=== PATIENT | male | born 1935 | race Caucasian/White ===

== ENCOUNTER → 2016-06-06 | Day surgery (SDC) | payer MEDICARE, BC ==
[2013-09-05 14:00] VITALS: BP 122/59
[~2016-06-06] MED LIST: CARDI-OMEGA1000 MG PO; FLOMAX0.4 MG PO; GOOD SENSE ASPI81 M1 PO; OXYBUTYNIN5 MG PO; SIMVASTATIN40 MG PO; TENORMIN100 MG PO
--- NOTE | 2016-06-06 17:15 | NUR ---
ALL MEDICATIONS ADMINISTERED BY ANESTHESIA PROVIDER, SEE ANESTHESIA RECORD.
== END ==
LOC: MSO 13:25
DX: Z12.11 Encounter for screening for malignant neoplasm of colon (principal); Z80.0 Family history of malignant neoplasm of digestive organs; K64.0 First degree hemorrhoids
CPT/HCPCS: 00810; J7120

== ENCOUNTER → 2016-11-15 | Day surgery (SDC) | payer MEDICARE, BC ==
[2013-09-05 14:00] VITALS: BP 122/59
== END ==
LOC: MSO 08:46
DX: H25.12 Age-related nuclear cataract, left eye (principal); I10 Essential (primary) hypertension
CPT/HCPCS: 00142; A9270-GY; J0171; J2550; J3010; V2632; V2797

== ENCOUNTER → 2019-06-05 | Outpatient (CLI) | payer MEDICARE, BC ==
[2019-02-17 18:34] VITALS: BP 128/72
[~2019-06-05] MED LIST changes: +AUGMENTIN 875-1 EAC1 PO
== END ==
LOC: RAD 15:43
DX: I08.3 Combined rheumatic disorders of mitral, aortic and tricuspid valves (principal); E87.70 Fluid overload, unspecified; R60.0 Localized edema

== ENCOUNTER 2021-11-02 10:10 | Outpatient (RCR) | payer MEDICARE, BC | END 2021-12-01 | disposition still patient (30) | LOC: PT | DX: R26.89 Other abnormalities of gait and mobility (principal) ==

== ENCOUNTER 2021-12-02 10:06 | Outpatient (RCR) | payer MEDICARE, BC | END 2022-01-01 | disposition still patient (30) | LOC: PT | DX: R26.89 Other abnormalities of gait and mobility (principal) ==

== ENCOUNTER 2022-01-02 08:00 | Outpatient (RCR) | payer MEDICARE, BC | END 2022-02-01 | disposition home or self-care (01) | LOC: PT | DX: R26.89 Other abnormalities of gait and mobility (principal) ==

== ENCOUNTER 2023-03-26 08:21 | Emergency (ER) | payer MEDICARE, BC ==
[~2023-03-26] VITALS: Ht 182.9 cm; Wt 100.0 kg
[~2023-03-26 08:21] MED LIST changes: +COZAAR 50MG50 MG/TAB PO; +DITROPAN 5MG TAB5 MG PO; +FLONASE ALLERG9.9 ML; +LASIX40 M1 PO; +MASON NATURAL L20 MG PO; +NITROGLYCERIN0.4 M1 SL; +OCUVITE TABLET1 TAB; +ZYLOPRIM100 MG PO
[2023-03-26 08:33] VITALS: BP 127/82
[2023-03-26 09:09] LABS: BASO # 0.03 K/mm3 (0.02-0.10); EOS # 0.27 K/mm3 (0.04-0.40); EOS % 3.4 % (0.0-4.0); HEMATOCRIT 26.4 % (42.0-52.0); HEMOGLOBIN 8.4 g/dL (13.5-18.0); LYMPH# 0.94 K/mm3 (1.50-4.00); MEAN CELL VOLUME 104 fl (78-100); MEAN CORPUSCULAR HEMOGLOBIN 33 pg (27-31); MEAN CORPUSCULAR HGB CONC 32 g/dL (33-37); MEAN PLATELET VOLUME 9.3 fl (7.4-10.4); MONO # 0.86 K/mm3 (0.20-0.80); NEU # 5.76 K/mm3 (1.40-6.50); PLATELET COUNT 136 K/mm3 (130-400); RED BLOOD COUNT 2.55 M/mm3 (4.20-5.60); RED CELL DISTRIBUTION WIDTH 13.3 % (11.5-14.5); WHITE BLOOD COUNT 7.9 K/mm3 (4.8-10.8)
[2023-03-26 09:28] LABS: ALBUMIN 3.4 g/dL (3.4-4.8)
[2023-03-26 09:29] LABS: CALCIUM 9.2 mg/dL (8.3-10.5)
[2023-03-26 09:33] LABS: TOTAL BILIRUBIN 0.3 mg/dL (0.2-1.2)
[2023-03-26 10:24] LABS: ERYTHROCYTE SEDIMENTATION RATE 90 mm/hr (0-20)
[2023-03-26] MEDS ORDERED: DOXYCYCLINE HY100 M5 PO (10:59)
[2023-03-26] MEDS ORDERED: PREDNISONE20 MG PO (10:59)
== END 2023-03-26 11:06 | disposition home or self-care (01) ==
LOC: ED 08:21
PROVIDERS: Physician Assistant
DX: M10.031 Idiopathic gout, right wrist (principal); L03.113 Cellulitis of right upper limb; R79.82 Elevated C-reactive protein (CRP); R70.0 Elevated erythrocyte sedimentation rate; Z79.899 Other long term (current) drug therapy; Z88.1 Allergy status to other antibiotic agents

== ENCOUNTER 2023-11-25 11:22 | Inpatient (IN) | payer MEDICARE, BC ==
[~2023-11-25] VITALS: Ht 180.3 cm; Wt 99.7 kg
[~2023-11-25 11:22] MED LIST changes: +ATORVASTATIN CA20 MG PO; +BENZONATATE100 M2 PO; +CORDARONE200 MG/TAB PO; +DOXYCYCLINE HY100 M5 PO; +KAPSPARGO SPRIN25 MG PO; +PANTOPRAZOLE SO40 MG PO; +PREDNISONE20 MG PO
[2023-11-25 11:57] LABS: BASO # 0.02 K/mm3 (0.02-0.10); EOS # 0.07 K/mm3 (0.04-0.40); EOS % 0.8 % (0.0-4.0); HEMATOCRIT 33.1 % (42.0-52.0); HEMOGLOBIN 10.4 g/dL (13.5-18.0); LYMPH# 1.85 K/mm3 (1.50-4.00); MEAN CELL VOLUME 103 fl (78-100); MEAN CORPUSCULAR HEMOGLOBIN 32 pg (27-31); MEAN CORPUSCULAR HGB CONC 31 g/dL (33-37); MEAN PLATELET VOLUME 10.6 fl (7.4-10.4); MONO # 0.64 K/mm3 (0.20-0.80); NEU # 5.77 K/mm3 (1.40-6.50); PLATELET COUNT 95 K/mm3 (130-400); RED BLOOD COUNT 3.23 M/mm3 (4.20-5.60); RED CELL DISTRIBUTION WIDTH 17.8 % (11.5-14.5); WHITE BLOOD COUNT 8.4 K/mm3 (4.8-10.8)
[2023-11-25 12:00] LABS: ALBUMIN 3.1 g/dL (3.4-4.8); SODIUM 134 mmol/L (136-145)
[2023-11-25 12:01] LABS: CALCIUM 8.3 mg/dL (8.3-10.5)
[2023-11-25 12:02] LABS: GLUCOSE 79 mg/dL (75-110); TOTAL PROTEIN 6.1 g/dL (6.2-8.1)
[2023-11-25 12:04] LABS: CARBON DIOXIDE 25 mmol/L (23-31); TOTAL BILIRUBIN 0.5 mg/dL (0.2-1.2)
[2023-11-25 12:08] LABS: AST-SGOT 23 U/L (5-34)
[2023-11-25 12:09] LABS: ALT/SGPT 9 U/L (0-55)
[2023-11-25 12:14] LABS: PARTIAL THROMBOPLASTIN TIME 24.5 SECONDS (21.0-32.0); PROTHROMBIN TIME 11.3 SECONDS (9.0-12.0)
[2023-11-25] MEDS ORDERED: ZOCOR40 M1 PO (12:14)
[2023-11-25 12:16] LABS: TROPONIN-I < 0.030 ng/mL (0.00-0.033)
[2023-11-25 13:06] LABS: URINE APPEARANCE CLOUDY (CLEAR); URINE COLOR YELLOW (YELLOW)
[2023-11-25 13:07] LABS: PH-URINE 5.5 (5.0 - 8.0); URINE BLOOD 1+ (NEGATIVE); URINE GLUCOSE NEGATIVE (NEGATIVE); URINE KETONE TRACE (NEGATIVE); URINE LEUKOCYTE ESTERASE 3+ (NEGATIVE); URINE NITRATE NEGATIVE (NEGATIVE); URINE PROTEIN(semi-quant) 2+ (NEGATIVE)
[2023-11-25 13:08] LABS: URINE BILIRUBIN 2+ (NEGATIVE); URINE WBC >50 /hpf (0-3)
[2023-11-25 14:00] VITALS: BP 126/64
[2023-11-25] MEDS ORDERED: Acetaminophen 325 MG TAB PO PRN (14:15)
[2023-11-25] MEDS ORDERED: Ciprofloxacin 250 MG TAB PO SCH (14:15)
[2023-11-25] MEDS ORDERED: Polyethylene Glycol 3350 Powder 17 GM PACKET PO PRN (14:15)
[2023-11-25 18:13] VITALS: BP 127/65
[2023-11-25] MEDS ORDERED: Docusate Sodium 100 MG CAP PO SCH (21:00)
[2023-11-25 22:00] VITALS: BP 128/60
[2023-11-26 06:03] VITALS: BP 108/57
[2023-11-26 07:30] LABS: BASO # 0.01 K/mm3 (0.02-0.10); EOS # 0.15 K/mm3 (0.04-0.40); EOS % 1.8 % (0.0-4.0); HEMATOCRIT 29.8 % (42.0-52.0); HEMOGLOBIN 9.5 g/dL (13.5-18.0); LYMPH# 1.96 K/mm3 (1.50-4.00); MEAN CELL VOLUME 102 fl (78-100); MEAN CORPUSCULAR HEMOGLOBIN 32 pg (27-31); MEAN CORPUSCULAR HGB CONC 32 g/dL (33-37); MEAN PLATELET VOLUME 9.8 fl (7.4-10.4); MONO # 0.71 K/mm3 (0.20-0.80); NEU # 5.69 K/mm3 (1.40-6.50); PLATELET COUNT 92 K/mm3 (130-400); RED BLOOD COUNT 2.93 M/mm3 (4.20-5.60); RED CELL DISTRIBUTION WIDTH 17.4 % (11.5-14.5); WHITE BLOOD COUNT 8.5 K/mm3 (4.8-10.8)
[2023-11-26 07:33] LABS: ALBUMIN 2.9 g/dL (3.4-4.8)
[2023-11-26 07:35] LABS: CALCIUM 8.1 mg/dL (8.3-10.5)
[2023-11-26 07:36] LABS: TOTAL PROTEIN 5.8 g/dL (6.2-8.1)
[2023-11-26 07:38] LABS: TOTAL BILIRUBIN 0.4 mg/dL (0.2-1.2)
[2023-11-26] MEDS ORDERED: Allopurinol 100 MG TAB PO SCH (09:00)
[2023-11-26] MEDS ORDERED: Furosemide 40 MG TAB PO SCH (09:00)
[2023-11-26] MEDS ORDERED: Amiodarone 200 MG TAB PO SCH (09:00)
[2023-11-26 09:59] VITALS: BP 139/73
[2023-11-26 14:11] VITALS: BP 116/64
[2023-11-26 18:08] VITALS: BP 124/64
[2023-11-26 21:59] VITALS: BP 120/63
[2023-11-27] VITALS (7 sets, daily range): BP systolic 124–156; BP diastolic 63–71
[2023-11-27 10:54] LABS: BASO # 0.03 K/mm3 (0.02-0.10); EOS # 0.11 K/mm3 (0.04-0.40); EOS % 1.2 % (0.0-4.0); HEMATOCRIT 30.6 % (42.0-52.0); HEMOGLOBIN 9.8 g/dL (13.5-18.0); LYMPH# 1.94 K/mm3 (1.50-4.00); MEAN CELL VOLUME 99 fl (78-100); MEAN CORPUSCULAR HEMOGLOBIN 32 pg (27-31); MEAN CORPUSCULAR HGB CONC 32 g/dL (33-37); MEAN PLATELET VOLUME 9.4 fl (7.4-10.4); MONO # 0.71 K/mm3 (0.20-0.80); NEU # 6.11 K/mm3 (1.40-6.50); RED BLOOD COUNT 3.09 M/mm3 (4.20-5.60); RED CELL DISTRIBUTION WIDTH 16.7 % (11.5-14.5); WHITE BLOOD COUNT 8.9 K/mm3 (4.8-10.8)
[2023-11-27 11:06] LABS: ALBUMIN 2.9 g/dL (3.4-4.8)
[2023-11-27 11:07] LABS: CALCIUM 8.1 mg/dL (8.3-10.5)
[2023-11-27 11:08] LABS: TOTAL PROTEIN 5.9 g/dL (6.2-8.1)
[2023-11-27 11:10] LABS: TOTAL BILIRUBIN 0.3 mg/dL (0.2-1.2)
[2023-11-27 11:25] LABS: PLATELET COUNT 97 K/mm3 (130-400)
== END 2023-11-27 18:30 | disposition short-term general hospital (02) | DRG 643 ==
LOC: ED 11:22 → MED/SURG 13:14
PROVIDERS: ADMIT Family Medicine
DX: E03.9 Hypothyroidism, unspecified (principal); N18.6 End stage renal disease; I13.0 Hypertensive heart and chronic kidney disease with heart failure and stage 1 through stage 4 chronic kidney disease, or unspecified chronic kidney disease; I50.20 Unspecified systolic (congestive) heart failure; D63.1 Anemia in chronic kidney disease; D69.6 Thrombocytopenia, unspecified; M10.9 Gout, unspecified; I48.91 Unspecified atrial fibrillation; N31.9 Neuromuscular dysfunction of bladder, unspecified; I25.10 Atherosclerotic heart disease of native coronary artery without angina pectoris; E78.5 Hyperlipidemia, unspecified; N40.0 Benign prostatic hyperplasia without lower urinary tract symptoms; Z66 Do not resuscitate

== ENCOUNTER 2024-03-23 01:27 | Emergency (ER) | payer MEDICARE, BC ==
[~2024-03-23] VITALS: Ht 182.9 cm; Wt 111.0 kg
[~2024-03-23 01:27] MED LIST changes: +ZOCOR40 M1 PO; +ZYLOPRIM 100MG100 MG PO; -ZYLOPRIM100 MG PO
[2024-03-23 02:10] LABS: HEMATOCRIT 22.3 % (42.0-52.0); MEAN CELL VOLUME 100 fl (78-100); MEAN CORPUSCULAR HEMOGLOBIN 30 pg (27-31); MEAN CORPUSCULAR HGB CONC 30 g/dL (33-37); MEAN PLATELET VOLUME 10.3 fl (7.4-10.4); PLATELET COUNT 125 K/mm3 (130-400); RED CELL DISTRIBUTION WIDTH 16.9 % (11.5-14.5)
[2024-03-23 02:17] LABS: ALBUMIN 2.5 g/dL (3.4-4.8)
[2024-03-23 02:19] LABS: CALCIUM 7.6 mg/dL (8.3-10.5); HEMOGLOBIN 6.6 g/dL (13.5-18.0); RED BLOOD COUNT 2.23 M/mm3 (4.20-5.60); WHITE BLOOD COUNT 29.1 K/mm3 (4.8-10.8)
[2024-03-23 02:20] LABS: TOTAL PROTEIN 5.1 g/dL (6.2-8.1)
[2024-03-23 02:22] LABS: TOTAL BILIRUBIN 0.5 mg/dL (0.2-1.2)
[2024-03-23] MEDS ORDERED: LEVOTHYROXINE0.05 MG PO (02:30)
[2024-03-23] MEDS ORDERED: DESYREL50 MG PO (02:31)
[2024-03-23 02:35] LABS: BAND 2 % (0-10); NEUTROPHILS 32 % (42-75)
[2024-03-23 02:36] LABS: MONOCYTE 4 % (3-10)
[2024-03-23 02:37] LABS: HYPOCHROMIA 2+; NUCLEATED RED BLOOD CELL 1 (0-6); OVALOCYTES 1+; SCHISTOCYTES 1+; TARGET CELLS 1+
[2024-03-23 02:38] LABS: STOMATOCYTE 2+
[2024-03-23 02:39] LABS: LYMPHOCYTE 61 % (20-51)
[2024-03-23] MEDS ORDERED: cefTRIAXone 2 G in Water For Injection,Sterile 20 ML IV ONE (02:45)
[2024-03-23] MEDS ORDERED: fentaNYL 100 MCG/2 ML VIAL IV ONE ×2 (03:00→05:15)
[2024-03-23 03:05] LABS: PARTIAL THROMBOPLASTIN TIME 22.7 SECONDS (21.0-32.0); PROTHROMBIN TIME 10.7 SECONDS (9.0-12.0)
[2024-03-23 05:34] VITALS: BP 104/53
== END 2024-03-23 05:35 | disposition short-term general hospital (02) ==
LOC: ED 01:27
PROVIDERS: Nurse Practitioner Family
DX: T78.3XXA Angioneurotic edema, initial encounter (principal); N18.6 End stage renal disease; D63.1 Anemia in chronic kidney disease; I95.9 Hypotension, unspecified; R09.02 Hypoxemia; J18.9 Pneumonia, unspecified organism; Z99.2 Dependence on renal dialysis; X58.XXXA Exposure to other specified factors, initial encounter
CPT/HCPCS: J0696; J3010